=== PATIENT | female | born 1945 | race Caucasian/White ===

== ENCOUNTER 2018-07-26 15:09 | Outpatient (REF) | payer MEDICARE, OTHER, SELFPAY ==
[2018-07-26 20:56] LABS: TSH (W/Ref FT4) 0.37 uIU/mL (0.358-3.74)
== END 2018-07-26 15:29 ==
LOC: NCHCN 15:09
PROVIDERS: PCP Family Medicine; Visit Provider Family Medicine
DX: J06.9 Acute upper respiratory infection, unspecified (principal); E03.9 Hypothyroidism, unspecified
CPT/HCPCS: 84443

== ENCOUNTER 2018-09-05 00:34 | Outpatient (CLI) | payer MEDICARE, OTHER, SELFPAY ==
--- NOTE | 2018-09-05 13:05 | DI.CTLCSR_ITS ---
SYMPTOM/DIAGNOSIS: PERSONAL H/O TOBACCO ABUSE, Z87.[address] LUNG CANCER SCREENING PROTOCOL: CT examination of the chest was performed utilizing low dose lung cancer screening protocol. Images obtained through the upper abdomen show unremarkable appearance of visualized portions of liver, spleen, pancreas, adrenals and kidneys. No mediastinal mass or adenopathy is seen. No pleural effusion or pleural based mass. Tracheobronchial tree appears intact. There is moderate predominantly subpleural emphysema, particularly in the lung apices. A 5 mm.in diameter right basilar pleural based, well circumscribed nodule is noted. Minimal bi-apical pleural scarring noted. No other intrapulmonary nodule identified. CONCLUSION: No suspicious nodule identified. 5 mm. right basilar pleural based nodule posteriorly. Category 2, continue annual screening with LDCT in 12 months. Lung-RAD Category: Lung RADS Category 2- Benign Appearance/Behavior
== END 2018-09-05 00:54 ==
PROVIDERS: PCP Family Medicine; Visit Provider Family Medicine
DX: Z12.2 Encounter for screening for malignant neoplasm of respiratory organs (principal); Z87.891 Personal history of nicotine dependence; R91.1 Solitary pulmonary nodule
CPT/HCPCS: G0297

== ENCOUNTER 2019-07-11 10:22 | Outpatient (REF) | payer MEDICARE, OTHER, SELFPAY ==
[2019-07-11 22:17] LABS: Anion Gap 10.5 mmol/L (3-11); BUN 18 mg/dL (7-18); CO2 24.5 mmol/L (21.0-32.0); CREATININE 0.84 mg/dL (0.55-1.02); Calcium 8.7 mg/dL (8.5-10.1); Chloride 105 mmol/L (98-107); FREE T4 1.34 ng/dL (0.76-1.46); Glucose 94 mg/dL (70-100); Lipase 70 U/L (73-393); Potassium 4.4 mmol/L (3.5-5.1); Sodium 140 mmol/L (136-145); TSH 0.07 uIU/mL (0.36-3.74)
== END 2019-07-11 10:42 ==
LOC: NCHCN 10:22
PROVIDERS: PCP Family Medicine; Visit Provider Family Medicine
DX: E03.9 Hypothyroidism, unspecified (principal); M54.5 Low back pain; M25.559 Pain in unspecified hip; R03.0 Elevated blood-pressure reading, without diagnosis of hypertension; D49.4 Neoplasm of unspecified behavior of bladder
CPT/HCPCS: 80048; 83690; 84439; 84443

== ENCOUNTER 2019-07-24 01:17 | Outpatient (CLI) | payer MEDICARE, OTHER, SELFPAY ==
--- NOTE | 2019-07-24 10:45 | DI.RAD_ITS ---
EXAM: XR LUMBAR SPINE COMPLETE INDICATION: LBP M54.5. COMPARISON: No exams were available for comparison TECHNIQUE: 2D digital imaging was performed. FINDINGS: The bony structures are normally mineralized. Multi level disc space narrowing is prominent at T12-L 1, L1-L2 and L2-L3. Associated endplate sclerosis and hypertrophic spurring is identified. The pedi galindo, spinous and transverse processes appear intact. The sacrum and sacroiliac joints are unremarkab le. Note is made a mild dextro roto scoliotic deformity. IMPRESSION: Degenerative changes as described above.
== END 2019-07-24 01:37 ==
PROVIDERS: PCP Family Medicine; Visit Provider Family Medicine
DX: M54.5 Low back pain (principal); M51.36 Other intervertebral disc degeneration, lumbar region
CPT/HCPCS: 72110

== ENCOUNTER 2019-08-18 00:45 | Outpatient (CLI) | payer MEDICARE, OTHER, SELFPAY ==
--- NOTE | 2019-08-18 10:02 | DI.MRI_ITS ---
EXAM: MR LUMBAR SPINE WO CLINICAL HISTORY: LOW BACK PAIN, M54.5. TECHNIQUE: Multiplanar multisequence MRI was performed. COMPARISON: XR LUMBAR SPINE COMPLETE from 07/24/2019 FINDINGS: There is moderate to severe loss of disc height and concentric disc bulging at T12-L1 and L1-2. Th ere is no significant central canal stenosis or neural foraminal narrowing at these levels. At L2-3, there is mild broad-based disc bulging. The L3-4 disc is well maintained. There is disc desiccatio n. There are mild facet degenerative changes but no significant central canal stenosis. There is mi ld right neural foraminal narrowing. At L4-5, there is moderate concentric disc bulging. There are facet degenerative changes and ligamentous hypertrophy but no significant central canal stenosis. Th ere is mild left and moderate right neural foraminal narrowing. The L5-S1 disc shows normal height a nd signal. There is no central canal stenosis or neural foraminal narrowing. No disc herniation is seen at any level. The conus medullaris appears intact. The aorta is normal in diameter. IMPRESSION: Degenerative disc changes and facet degenerative changes greatest at L4-5, causing neural foraminal n arrowing.
[2019-08-18] MEDS: Gadoterate meglumine 20 ML VIAL 15 ML IVP (10:40)
[2019-08-18] MEDS: Normal Saline Flush 10 ML SYR IVP (10:40)
--- NOTE | 2019-08-18 10:50 | DI.MRI_ITS ---
EXAM: MR ABDOMEN WO/W CLINICAL HISTORY: PANCREATIC LESION, K86.9, F/U ABNL CT, R93.5. TECHNIQUE: Multiplanar multisequence MRI was performed. The exam is limited by patient body habitus , respiratory motion and equipment limitations. COMPARISON: ABDOMEN WITH + PELVIS WITH from 03/31/2019 ABDOMEN WITH + PELVIS WITH from 03/31/2019 FINDINGS: There is stable mild dilatation of the pancreatic duct and mild dilatation of the common bile duct. The area in question in the head of the pancreas on the previous CT appears purely cystic by MRI. I t appears unchanged in size. No new findings are seen. Multiple bilateral renal cysts are again not ed, right greater than left. IMPRESSION: Limited exam. The previously noted lesion in the pancreatic head appears cystic by MRI. It may repre sent a dilated duct.
== END 2019-08-18 01:05 ==
PROVIDERS: PCP Family Medicine; Visit Provider Family Medicine
DX: M54.5 Low back pain (principal); M51.36 Other intervertebral disc degeneration, lumbar region; M47.816 Spondylosis without myelopathy or radiculopathy, lumbar region; K86.89 Other specified diseases of pancreas; R93.5 Abnormal findings on diagnostic imaging of other abdominal regions, including retroperitoneum; N28.1 Cyst of kidney, acquired; K86.2 Cyst of pancreas
CPT/HCPCS: 74183; 72148

== ENCOUNTER 2019-11-06 00:53 | Outpatient (CLI) | payer MEDICARE, OTHER, SELFPAY ==
--- NOTE | 2019-11-06 11:14 | DI.MAMMO_ITS ---
EXAM: MG MAMMO SCREENING CLINICAL HISTORY: SCREENING, [facility] Z00.00 TECHNIQUE: Mammograms were interpreted according to the usual protocol including computer analysis w [employer] system, tomosynthesis and C-view imaging. COMPARISON: October 2016 FINDINGS: The breasts are heterogeneously dense with fairly symmetrical distribution of fibroglandular tissue. No dominant mass or clumped microcalcification is identified in either breast. Current examination is compared with previous examinations including October 2016 and there has been no gross interval ch abril in appearance in comparison with the previous studies. IMPRESSION: No specific evidence of malignancy at this time. Routine screening examinations are suggested at year ly intervals in this age group according to the ACS/ACR guidelines. Category 1, breast density catego ry C. BI-RADS Cat 1 - Negative Breast Density - Category C - Heterogeneously dense
== END 2019-11-06 01:13 ==
PROVIDERS: PCP Family Medicine; Visit Provider Family Medicine
DX: Z12.31 Encounter for screening mammogram for malignant neoplasm of breast (principal)
CPT/HCPCS: 77063; 77067

== ENCOUNTER 2020-09-11 11:17 | Outpatient (REF) | payer MEDICARE, OTHER, SELFPAY ==
[2020-09-11 21:26] LABS: TSH (W/Ref FT4) 0.04 uIU/mL (0.36-3.74)
[2020-09-11 21:55] LABS: FREE T4 1.55 ng/dL (0.76-1.46)
== END 2020-09-11 11:37 ==
LOC: NCHCN 11:17
PROVIDERS: PCP Family Medicine; Visit Provider Family Medicine
DX: E03.9 Hypothyroidism, unspecified (principal)
CPT/HCPCS: 84439; 84443

== ENCOUNTER 2020-11-21 23:40 | Outpatient (REF) | payer MEDICARE, OTHER, SELFPAY ==
[2020-11-21 19:10] LABS: FREE T4 1.46 ng/dL (0.76-1.46)
[2020-11-22 13:20] LABS: Calculated LDL 77 mg/dL (<100); Cholesterol 153 mg/dL (<200); HDL Cholesterol 37 mg/dL (40-60); Triglyceride 198 mg/dL (<150)
== END 2020-11-21 23:41 | disposition home or self-care (01) ==
LOC: NCHCN 23:40
PROVIDERS: PCP Family Medicine; Visit Provider Family Medicine
DX: E03.9 Hypothyroidism, unspecified (principal); R00.2 Palpitations; R06.09 Other forms of dyspnea
CPT/HCPCS: 80061; 84439

== ENCOUNTER 2020-12-05 18:52 | Outpatient (REF) | payer MEDICARE, OTHER, SELFPAY ==
[2020-12-07 13:54] LABS: COVID-19 RT-PCR UVMMC Result Negative (Negative)
== END 2020-12-05 18:53 | disposition home or self-care (01) ==
LOC: NCHCN 18:52
PROVIDERS: PCP Family Medicine; Visit Provider Nurse Practitioner Family
DX: R06.09 Other forms of dyspnea (principal)
CPT/HCPCS: U0003; U0005

== ENCOUNTER 2020-12-06 19:07 | Outpatient (CLI) | payer MEDICARE, OTHER, SELFPAY ==
--- NOTE | 2020-12-06 10:22 | DI.RAD_ITS ---
EXAM: XR CHEST 2V PA LATERAL CLINICAL HISTORY: COUGH, DYSPNEA, R05, R06.09 TECHNIQUE: 2D digital imaging was performed. COMPARISON: CT CT CHEST LUNG CANCER SCREEN from 09/05/2018 FINDINGS: MEDIASTINUM: Normal. HEART: Normal. PULMONARY VASCULATURE: Normal. LUNGS: Clear. PLEURAL SPACE: No pleural effusion or pneumothorax. BONE:Mild degenerative changes in the thoracic spine. OTHER FINDINGS:Normal. IMPRESSION: No acute pulmonary findings. DATA REPOSITORY: RADIATION DOSE DELIVERED:
== END 2020-12-06 19:08 ==
LOC: DI 12-12 19:07
PROVIDERS: PCP Family Medicine; Visit Provider Nurse Practitioner Family
DX: R05 Cough (principal); R06.09 Other forms of dyspnea
CPT/HCPCS: 71046

== ENCOUNTER 2021-09-18 11:23 | Outpatient (REF) | payer MEDICARE, OTHER, SELFPAY ==
[2021-09-19 12:10] LABS: COVID-19 RT-PCR UVMMC Result Negative (Negative)
== END 2021-09-18 11:24 | disposition home or self-care (01) ==
LOC: NCHCN 11:23
PROVIDERS: PCP Family Medicine; Visit Provider Nurse Practitioner Family
DX: Z20.822 Contact with and (suspected) exposure to COVID-19 (principal); R05.8 Other specified cough; R06.09 Other forms of dyspnea
CPT/HCPCS: U0003; U0005

== ENCOUNTER 2021-09-29 12:53 | Outpatient (CLI) | payer MEDICARE, OTHER, SELFPAY ==
--- NOTE | 2021-09-29 13:14 | DI.RAD_ITS ---
Exam(s) XR CHEST 2V PA LATERAL EXAM: XR CHEST 2V PA LATERAL CLINICAL HISTORY: ACUTE COUGH R05.1, MORRISSEY R06.09, R/O PNEUMONIA. TECHNIQUE: 2D digital imaging was performed. COMPARISON: CR CHEST 2 VIEWS PA,LAT from 05/12/2010 CR CHEST 2 VIEWS PA,LAT from 05/12/2010 CR XR CHEST 2V PA LATERAL from 12/06/2020 FINDINGS: Heart size is normal. The mediastinum is not widened. Mild increased lung markings. Possible very subtle infiltrate left lobe No pleural effusions. IMPRESSION: Slightly increased lung markings bilaterally. Possible very subtle left upper lobe. If clinically i ndicated follow-up CT scan can be. DATA REPOSITORY: RADIATION DOSE DELIVERED:
== END 2021-09-29 13:13 ==
PROVIDERS: PCP Family Medicine; Visit Provider Nurse Practitioner Family
DX: R05.1 Acute cough (principal); R06.09 Other forms of dyspnea; R91.8 Other nonspecific abnormal finding of lung field
CPT/HCPCS: 71046

== ENCOUNTER 2021-09-29 19:13 | Outpatient (REF) | payer MEDICARE, OTHER, SELFPAY ==
[2021-09-29 20:40] LABS: Abs Immature Grans 0.04 10^3/uL (0.0-0.06); Absolute Lymphocyte Count 2.23 10^3/uL (1.2-3.4); Absolute Monocyte Count 0.75 10^3/uL (0.1-0.8); Basophils % 0.7; Eosinophils % 4.2; HCT 40.7 % (36.0-46.0); HGB 13.2 g/dL (11.2-15.7); Immature Grans % 0.3; Lymphocytes % 18.2; MCH 30.1 pg (27.0-33.0); MCHC 32.4 % (32.0-36.0); MCV 92.9 fL (80-95); MPV 10.9 fL (8.0-11.0); Monocytes % 6.1; Neutrophils % 70.5; Nucleated RBC 0 %; Platelet Count 245 10^3/uL (130-400); RBC 4.38 10^6/uL (3.93-5.22); RDW-SD 41.4 fL; WBC 12.28 10^3/uL (4.4-10.8)
[2021-09-29 20:42] LABS: Absolute Basophil Count 0.09 10^3/uL (0.0-0.2); Absolute Eosinophil Count 0.52 10^3/uL (0.0-0.7); Absolute Neutrophil Count 8.66 10^3/uL (1.2-6.7)
[2021-09-29 20:44] LABS: Anion Gap 8.3 mmol/L (3-11); BUN 12 mg/dL (7-18); CO2 27.7 mmol/L (21.0-32.0); CREATININE 0.9 mg/dL (0.55-1.02); Calcium 8.9 mg/dL (8.5-10.1); Chloride 105 mmol/L (98-107); Glucose 137 mg/dL (74-106); Potassium 3.7 mmol/L (3.5-5.1); Sodium 141 mmol/L (136-145)
[2021-09-30 13:41] LABS: COVID-19 RT-PCR UVMMC Result Negative (Negative)
== END 2021-09-29 19:14 | disposition home or self-care (01) ==
LOC: NCHCN 19:13
PROVIDERS: PCP Family Medicine; Visit Provider Nurse Practitioner Family
DX: R05.1 Acute cough (principal); Z20.822 Contact with and (suspected) exposure to COVID-19; E03.9 Hypothyroidism, unspecified
CPT/HCPCS: 80048; U0003; U0005; 85025

== ENCOUNTER 2021-10-23 13:43 | Outpatient (REF) | payer MEDICARE, OTHER, SELFPAY ==
[2021-10-24 12:31] LABS: COVID-19 RT-PCR UVMMC Result Negative (Negative)
== END 2021-10-23 13:44 | disposition home or self-care (01) ==
LOC: LBN 13:43
PROVIDERS: PCP Family Medicine; Visit Provider Nurse Practitioner Family
DX: Z20.822 Contact with and (suspected) exposure to COVID-19 (principal); R05.1 Acute cough
CPT/HCPCS: U0003; U0005

== ENCOUNTER 2021-12-09 16:26 | Outpatient (REF) | payer MEDICARE, OTHER, SELFPAY ==
[2021-12-09 19:11] LABS: TSH (W/Ref FT4) 0.23 uIU/mL (0.36-3.74)
[2021-12-10 16:38] LABS: COVID-19 RT-PCR UVMMC Result Negative (Negative)
== END 2021-12-09 16:27 | disposition home or self-care (01) ==
LOC: NCHCN 16:26
PROVIDERS: PCP Family Medicine; Visit Provider Family Medicine
DX: E03.9 Hypothyroidism, unspecified (principal); R05.8 Other specified cough; J06.9 Acute upper respiratory infection, unspecified; Z20.822 Contact with and (suspected) exposure to COVID-19
CPT/HCPCS: U0003; U0005; 84439; 84443

== ENCOUNTER 2021-12-16 00:44 | Outpatient (CLI) | payer MEDICARE, OTHER, SELFPAY ==
--- NOTE | 2021-12-16 13:44 | DI.CTLCSR_ITS ---
Exam(s) CT CHEST LUNG CANCER SCREEN EXAM: CT CHEST LUNG CANCER SCREEN CLINICAL HISTORY: SCREENING FOR LUNG CA, FORMER SMOKER, Z87.891 TECHNIQUE: Imaging Protocol: Axial computed tomography images with coronal and sagittal reformatted images were created and reviewed COMPARISON: CT CT CHEST LUNG CANCER SCREEN from 09/05/2018 FINDINGS: Tracheobronchial tree: Patent where visualized. Pulmonary parenchyma: No consolidation or dominant measurable mass. Emphysematous changes are present in the lungs. Mild pulmonary fibrosis. There are findings suspicious for right infrahilar mass or enlarged lymph node measuring 1.4 transverse by 1.4 AP by 1.5 craniocaudad. Lung Nodules: There is a stable 5 mm pleural based nodule in the right lower lobe. Mediastinum and Caitlin: No dominant adenopathy or fluid collection. The esophagus is unremarkable. Thyroid gland: Unremarkable. Lymph nodes: Unremarkable. Pleura: No effusion or pneumothorax. Heart: The heart is not dilated. Coronary artery calcification is present. No pericardial effusion. Aorta: Thoracic aorta non-dilated.Atherosclerosis. Upper abdomen: Status post cholecystectomy. The liver has a mildly nodular contour which can be see n with hepatic cirrhosis. Soft Tissues: Unremarkable. Bones: Within normal limits. IMPRESSION: 1. Findings suspicious for right infrahilar mass or enlarged lymph node. A postcontrast CT scan of t he chest is recommended for further evaluation. 2. Stable 5 mm pleural based nodule in the right lower lobe. 3. Pulmonary emphysema. Lung RADS Cat 0 - Prior chest CT exam(s) being located for comparison or post-contrast CT scan of the chest recommendation. Lung-RADS 1.0 CATEGORIES: Category 0 - Prior chest CT exam(s) being located for comparison. Category 1 - Annual screening in 12 months. No nodules or definitely benign nodules. Category 2 - Annual screening in 12 months. Benign appearance. Nodules with low likelihood of becomin g active cancer. Category 3 - 6-month follow-up. Probably benign. Short-term follow-up suggested. Nodules with low lik elihood of becoming active cancer. Category 4A - 3-month follow-up and CT/PET if >8 mm in size. Suspicious finding. Findings which requi re additional testing. Category 4B - Findings which require additional testing and tissue sampling. Suspicious finding. Category 4X - Category 3 or 4 nodules with additional features or imaging findings that increases the suspicion of malignancy. Modifier S- Potentially clinically significant finding. (Non lung cancer) RADIATION DOSE DELIVERED: 76.6mGy.cm Total DLP !Error CTDIvol 76.6mGy.cm Total DLP 1.84mGy CTDIvol DATA REPOSITORY: All CT scans at this facility are submitted to the National Radiology Data Registry (NRDR) Dose Index Registry (DIR) with the [employer] (ACR). RADIATION OPTIMIZATION: All CT scans at this facility use at least one of these dose optimization te chniques: automated exposure control; mA and/or kV adjustment per patient size (includes targeted exa ms where dose is matched to clinical indication); or iterative reconstruction.
== END 2021-12-16 01:04 ==
PROVIDERS: PCP Family Medicine; Visit Provider Family Medicine
DX: Z12.2 Encounter for screening for malignant neoplasm of respiratory organs (principal); Z87.891 Personal history of nicotine dependence; R91.8 Other nonspecific abnormal finding of lung field; R91.1 Solitary pulmonary nodule; R59.0 Localized enlarged lymph nodes; J43.8 Other emphysema
CPT/HCPCS: 71271

== ENCOUNTER 2022-01-20 02:52 | Outpatient (CLI) | payer MEDICARE, OTHER, SELFPAY ==
[2022-01-20 12:53] LABS: CREATININE 0.8 mg/dL (0.55-1.02)
--- NOTE | 2022-01-20 13:00 | DI.CT_ITS ---
Exam(s) CT CHEST W EXAM: CT CHEST W CLINICAL HISTORY: INDETERMINATE PULMONARY NODULES, R91.8, F/U INTRAHILAR ABNORMALITIES TECHNIQUE: Imaging Protocol: Axial computed tomography images with coronal and sagittal reformatted images were created and reviewed CONTRAST MATERIAL: Intravenous: Omnipaque 350 Contrast volume:70 mL. COMPARISON: CT CT CHEST LUNG CANCER SCREEN from 09/05/[address] CHEST LUNG CANCER SCREEN from 12/16/2021 FINDINGS: Tracheobronchial tree: Patent where visualized. Pulmonary parenchyma: Dependent atelectasis. There are facet metastatic gist in the lungs. Mediastinum and Caitlin: There are enlarged mediastinal and hilar lymph nodes. There is a 1.2 x 0.9 cm pretracheal lymph node. There is a 1.2 x 1.2 cm right infrahilar lymph node. There is a 1.1 x 0.8 c m left hilar lymph node. No enlarged axillary or supraclavicular lymph nodes are seen. The esophagu s is unremarkable. Thyroid gland: Unremarkable. Pleura: No effusion or pneumothorax. Heart: The heart is not dilated. Coronary artery calcification is present. No pericardial effusion. Aorta: Thoracic aorta non-dilated. Atherosclerosis. Pulmonary arteries: The pulmonary arteries are not opacified well enough for evaluation of pulmonary emboli. Upper abdomen: Unremarkable. Lymph nodes: Please see above. Bones: Within normal limits for the patient's age. Soft tissues: Unremarkable. IMPRESSION: Mildly enlarged lymph nodes seen in the mediastinum and caitlin bilaterally. These may be reactive. No pulmonary mass is seen. A follow-up examination may be obtained in 3-6 months. Alternatively, a PE T scan may be also be considered. RADIATION DOSE DELIVERED: 557.41mGy.cm Total DLP DATA REPOSITORY: All CT scans at this facility are submitted to the National Radiology Data Registry (NRDR) Dose Index Registry (DIR) with the [employer] (ACR). RADIATION OPTIMIZATION: All CT scans at this facility use at least one of these dose optimization te chniques: automated exposure control; mA and/or kV adjustment per patient size (includes targeted exa ms where dose is matched to clinical indication); or iterative reconstruction.
[2022-01-20] MEDS: Omnipaque 350 MG/ML 100 ML BTL 70 ML IJ (13:20)
[2022-01-20] MEDS: Normal Saline Flush 10 ML SYR IVP (13:22)
== END 2022-01-20 03:12 ==
PROVIDERS: PCP Family Medicine; Visit Provider Family Medicine
DX: Z01.812 Encounter for preprocedural laboratory examination (principal); R91.8 Other nonspecific abnormal finding of lung field; J98.11 Atelectasis; R59.0 Localized enlarged lymph nodes
CPT/HCPCS: 71260; 82565; J3490

== ENCOUNTER → 2022-09-24 01:10 | Outpatient (CLI) | payer MEDICARE, OTHER, SELFPAY ==
--- NOTE | 2022-09-24 15:00 | DI.MAMMO_ITS ---
Exam(s) MAMMO SCREENING EXAM: MAMMO SCREENING CLINICAL HISTORY: SCREENING, Z12.31 TECHNIQUE: Bilateral full field digital CC and MLO mammographic images were obtained with 3D tomosyn thesis and utilizing computer aided detection (CAD). COMPARISON: Available for comparison. FINDINGS: Masses/Architectural Distortion: Slight increase in size and increased number of associated calcifica tions of an ovoid density in the central left breast on the MLO view. Microcalcifications: No suspicious pleomorphic-type are seen. Skin Thickening/Nipple Retraction: None. IMPRESSION: 1. Change in appearance of an ovoid nodule in the central left breast on the MLO view. 2. Evaluation with a spot compression view is requested. Limited left breast ultrasound is also dyan mmended for further evaluation. BI-RADS Category 0 - Assessment Incomplete: Need additional imaging evaluation Breast Density - Category C - Heterogeneously dense Breast density category C or D implies that the patient has dense breast tissue. Dense breast tissue is very common and is not abnormal but dense breast tissue can make it harder to find cancer on a ma mmogram. Also, dense breast tissue may increase their breast cancer risk. This information about the result of the mammogram report was provided to the patient to raise their awareness. Use this report when you speak with the patient about their risks for breast cancer, which includes their family hist ory. At that time, you may recommend for more screening tests (Ultrasound or MRI) as they might be us eful based on their risk. A negative radiographic report should not delay biopsy if a dominant or clinically suspicious mass is present. Up to ten percent of cancers are not identified on mammography. A negative report may reinforce clinical impression. Adenosis and dense breasts may obscure an underlying neoplasm. False positive reports average 6 to 10%. Patient will receive a letter notifying them of these results.
== END ==
PROVIDERS: PCP Family Medicine; Visit Provider Family Medicine
DX: Z12.31 Encounter for screening mammogram for malignant neoplasm of breast (principal); R92.8 Other abnormal and inconclusive findings on diagnostic imaging of breast
CPT/HCPCS: 77063; 77067

== ENCOUNTER → 2022-09-29 01:26 | Outpatient (CLI) | payer MEDICARE, OTHER, SELFPAY ==
--- NOTE | 2022-09-29 | DI.MAMMO_ITS ---
Exam(s) MG MAMMO SCREEN CALL BACK UNI US BREAST LT LIMITED EXAM: MG MAMMO SCREEN CALL BACK UNI and U/S breast LT limited CLINICAL HISTORY: F/U MAMMO R92.8,CHANGE IN APPEARANCE OF OVOID NODULE ON LT ML0. TECHNIQUE: Craniocaudal and mediolateral oblique Full Field Digital Mammography views of the left br east with Computer Aided Diagnosis followed by Tomosynthesis and left breast ultrasound. COMPARISON: Comparison is made with prior examinations. FINDINGS: Mammography/Tomosynthesis: Masses/Architectural Distortion: The additional view shows a partially obscured but lobulated density in the central outer left breast. It is less concerning on the current examination and appears irma lar to prior examinations. Microcalcifictions: No suspicious pleomorphic-type are seen. Skin Thickening/Nipple Retraction: None. Limited left breast US: Echotexture: Normal appearance of the glandular tissue. Shadowing: No suspicious foci. Cyst: None. Solid lesions: There is a bilobed well-circumscribed hypoechoic nodule at the 2 o'clock position of t he left breast 4 cm from the nipple. This would appear to correspond to the mammographic abnormality . The nodule shows no posterior acoustic enhancement or shadowing. Internal echogenic foci are seen consistent with the calcifications seen on the mammogram. No definite suspicious features are seen at this time. Ductal dilation: None. IMPRESSION: 1. No definite evidence of malignancy is noted. 2. A six-month follow-up left mammogram and limited left breast ultrasound are requested for re-evalu ation. 3. The findings were discussed with the patient on the date of the examination. BI-RADS Category 3 - 6 month - Probably Benign Finding: Recommend follow-up imaging in 6 months Breast Density - Category C - Heterogeneously dense Breast density Category C or D implies that the patient has dense breast tissue. Dense breast tissue can make it harder to find cancer on a mammogram. Dense breast tissue is also associated with an incr eased risk of breast cancer. This information about the result of the mammogram report was provided to the patient to raise their awareness. Use this report when you speak with the patient about their risks for breast cancer, which includes their family history. At that time, you may recommend additional screening tests (Ultrasoun d or MRI) as these tests may add significant information. A negative radiographic report should not delay biopsy if a dominant or clinically suspicious mass is present. Up to ten percent of cancers are not identified on mammography. A negative report may reinforce clinical impression. Adenosis and dense breasts may obscure an underlying neoplasm. False positive reports average 6 to 10%. Patient will receive a letter notifying them of these results.
== END ==
PROVIDERS: PCP Family Medicine; Visit Provider Family Medicine
DX: R92.8 Other abnormal and inconclusive findings on diagnostic imaging of breast (principal); Z12.31 Encounter for screening mammogram for malignant neoplasm of breast
CPT/HCPCS: 76642; 77063; 77067

== ENCOUNTER 2023-01-29 12:10 | Outpatient (REF) | payer MEDICARE, SELFPAY ==
[2023-01-29 15:45] LABS: Hemoglobin A1C 5.6 % (<5.7)
[2023-01-29 15:57] LABS: TSH (W/Ref FT4) 0.04 uIU/mL (0.36-3.74)
[2023-01-29 16:42] LABS: FREE T4 1.51 ng/dL (0.76-1.46)
== END 2023-01-29 12:11 | disposition home or self-care (01) ==
LOC: NCHCN 12:10
PROVIDERS: PCP Family Medicine; Visit Provider Family Medicine
DX: E03.9 Hypothyroidism, unspecified (principal); D49.4 Neoplasm of unspecified behavior of bladder; R82.998 Other abnormal findings in urine; R73.09 Other abnormal glucose
CPT/HCPCS: 83036; 84439; 84443; 87086

== ENCOUNTER 2023-03-26 00:03 | Outpatient (CLI) | payer MEDICARE, SELFPAY ==
--- NOTE | 2023-03-26 | DI.MAMMO_ITS ---
Exam(s) MAMMO DIAGNOSTIC UNI EXAM: MAMMO DIAGNOSTIC UNI CLINICAL HISTORY: DIAGNOSTIC, 6 MO F/U, MAMMO, R92.8. TECHNIQUE: Craniocaudal and mediolateral oblique Full Field Digital Mammography views of the left br east with Computer Aided Diagnosis followed by Tomosynthesis. COMPARISON: Comparison is made with prior examinations. FINDINGS: Mammography/Tomosynthesis: Masses/Architectural Distortion: There is a stable nodule in the outer left breast. No area of archi tectural distortion is seen. Microcalcifictions: No suspicious pleomorphic-type are seen. Skin Thickening/Nipple Retraction: None. IMPRESSION: 1. Ultrasound could not be performed at this time. The patient is scheduled further six-month left b reast ultrasound within 2 weeks. 2. Stable nodule in the outer left breast. 3. This 6 month examination will be completed with the ultrasound which is to be performed. 4. The patient is aware that the examination is incomplete. BI-RADS Category 0 - Assessment Incomplete: Need additional imaging evaluation Breast Density - Category C - Heterogeneously dense Breast density Category C or D implies that the patient has dense breast tissue. Dense breast tissue can make it harder to find cancer on a mammogram. Dense breast tissue is also associated with an incr eased risk of breast cancer. This information about the result of the mammogram report was provided to the patient to raise their awareness. Use this report when you speak with the patient about their risks for breast cancer, which includes their family history. At that time, you may recommend additional screening tests (Ultrasoun d or MRI) as these tests may add significant information. A negative radiographic report should not delay biopsy if a dominant or clinically suspicious mass is present. Up to ten percent of cancers are not identified on mammography. A negative report may reinforce clinical impression. Adenosis and dense breasts may obscure an underlying neoplasm. False positive reports average 6 to 10%. Patient will receive a letter notifying them of these results.
--- NOTE | 2023-03-26 10:30 | DI.DEXA_ITS ---
Exam(s) XR DEXA BONE DENSITY W/WO MATT EXAM: XR DEXA BONE DENSITY W/WO MATT CLINICAL HISTORY: POSTMENOPAUSAL, Z78.0, PREVENTATIVE HEALTH CARE, Z00.00 TECHNIQUE: COMPARISON: No exams were available for comparison FINDINGS: Lateral Spine Image: Unremarkable. No compression deformities identified. Left hip: Total T-Score: -1.5 Total Z-Score: 0.3 T- and Z-scores: Findings are consistent with osteopenia. Lumbar Spine: Total T-Score: -0.5 Total Z-Score: 2.0 T- and Z-scores: Within normal limits. IMPRESSION: No evidence of osteoporosis.
== END 2023-03-26 00:23 ==
PROVIDERS: PCP Family Medicine; Visit Provider Family Medicine
DX: Z78.0 Asymptomatic menopausal state (principal); Z12.31 Encounter for screening mammogram for malignant neoplasm of breast; R92.8 Other abnormal and inconclusive findings on diagnostic imaging of breast
CPT/HCPCS: 77061; 77065; 77080; G0279

== ENCOUNTER 2023-03-31 02:43 | Outpatient (CLI) | payer MEDICARE, SELFPAY ==
--- NOTE | 2023-03-31 | DI.US_ITS ---
Exam(s) US BREAST LT COMPLETE EXAM: US BREAST LT COMPLETE-LEFT CLINICAL HISTORY: LT BREAST NODULE, 6 MO F/U. TECHNIQUE: Complete ultrasound of the breast was performed including all 4 quadrants, the retroareo lar region, and the ipsilateral axilla. COMPARISON: Prior mammograms were reviewed. Most recent mammogram was 03/26/2023. Prior ultrasound of 09/29/2022 also reviewed. FINDINGS: COMPLETE LEFT BREAST ULTRASOUND: The 12 o'clock position there is a benign 4 millimeter microcyst. At the 2 o'clock position there is again noted the previously described bilobed cystic structure whic h exhibits minimal if any significant change from the ultrasound examination 09/29/2022 and again exh ibits increased through transmission. This is wider than taller and has benign appearance. Echogeni c foci again noted associated with this, similar to previous. There are no additional ultrasound findings in all 4 quadrants. Scanning of the left axilla is negative for adenopathy. IMPRESSION: Unchanged benign appearance of the left breast 2 o'clock position bilobed cystic finding described ab ove. Incidental note of an additional small benign 4 mm at the 12 o'clock position of the same left breast Appropriate follow-up is to keep this patient on her yearly mammogram schedule, this implying that he r next bilateral mammogram would be in September 2023. I recommend repeat ultrasound examination at t hat time.. Findings and recommendations were discussed by myself with the patient today. BI-RADS Category 2 - Benign Findings Breast Density - Category C - Heterogeneously dense Breast density Category C or D implies that the patient has dense breast tissue. Dense breast tissue can make it harder to find cancer on a mammogram. Dense breast tissue is also associated with an incr eased risk of breast cancer. This information about the result of the mammogram report was provided to the patient to raise their awareness. Use this report when you speak with the patient about their risks for breast cancer, which includes their family history. At that time, you may recommend additional screening tests (Ultrasoun d or MRI) as these tests may add significant information. A negative radiographic report should not delay biopsy if a dominant or clinically suspicious mass is present. Up to ten percent of cancers are not identified on mammography. A negative report may reinforce clinical impression. Adenosis and dense breasts may obscure an underlying neoplasm. False positive reports average 6 to 10%. Patient will receive a letter notifying them of these results.
== END 2023-03-31 03:03 ==
LOC: DI 02:44
PROVIDERS: PCP Family Medicine; Visit Provider Family Medicine
DX: R92.8 Other abnormal and inconclusive findings on diagnostic imaging of breast (principal)
CPT/HCPCS: 76642

== ENCOUNTER 2023-08-10 16:17 | Outpatient (REF) | payer MEDICARE, SELFPAY | END 2023-08-10 16:18 | disposition home or self-care (01) | LOC: NCHCN 16:17 | PROVIDERS: PCP Family Medicine; Visit Provider Family Medicine | DX: L72.3 Sebaceous cyst (principal) | CPT/HCPCS: 87070; 87205 ==

== ENCOUNTER → 2023-09-28 01:43 | Outpatient (CLI) | payer MEDICARE, SELFPAY ==
--- NOTE | 2023-09-28 | DI.MAMMO_ITS ---
Exam(s) MAMMO SCREENING EXAM: MAMMO SCREENING CLINICAL HISTORY: Screening Z12.39, Preventative health care Z00.00 TECHNIQUE: Bilateral full field digital CC and MLO mammographic images were obtained with 3D tomosyn thesis and utilizing computer aided detection (CAD). COMPARISON: Available for comparison. FINDINGS: Masses/Architectural Distortion: There are stable nodules in the breasts. No suspicious or new nodul es or areas of architectural distortion are seen. Microcalcifications: No suspicious pleomorphic-type are seen. Skin Thickening/Nipple Retraction: None. IMPRESSION: 1. No significant interval change with no specific features of malignancy noted. 2. Unless there is more urgent need, screening mammography is recommended, as per [place] [employer] guidelines. BI-RADS Category 2 - Benign Findings Breast Density - Category B - Scattered areas of fibroglandular density Breast density category C or D implies that the patient has dense breast tissue. Dense breast tissue is very common and is not abnormal but dense breast tissue can make it harder to find cancer on a ma mmogram. Also, dense breast tissue may increase their breast cancer risk. This information about the result of the mammogram report was provided to the patient to raise their awareness. Use this report when you speak with the patient about their risks for breast cancer, which includes their family hist ory. At that time, you may recommend for more screening tests (Ultrasound or MRI) as they might be us eful based on their risk. A negative radiographic report should not delay biopsy if a dominant or clinically suspicious mass is present. Up to ten percent of cancers are not identified on mammography. A negative report may reinforce clinical impression. Adenosis and dense breasts may obscure an underlying neoplasm. False positive reports average 6 to 10%. Patient will receive a letter notifying them of these results.
== END ==
PROVIDERS: PCP Family Medicine; Visit Provider Family Medicine
DX: Z12.31 Encounter for screening mammogram for malignant neoplasm of breast (principal)
CPT/HCPCS: 77063; 77067

== ENCOUNTER 2024-02-01 15:07 | Outpatient (REF) | payer MEDICARE, SELFPAY ==
[2024-02-01 16:28] LABS: TSH (W/Ref FT4) 0.06 uIU/mL (0.36-3.74)
[2024-02-01 17:43] LABS: FREE T4 1.35 ng/dL (0.76-1.46)
== END 2024-02-01 15:08 | disposition home or self-care (01) ==
LOC: NCHCN 15:07
PROVIDERS: PCP Family Medicine; Visit Provider Family Medicine
DX: E03.9 Hypothyroidism, unspecified (principal)
CPT/HCPCS: 84439; 84443

== ENCOUNTER → 2024-02-21 03:10 | Outpatient (CLI) | payer MEDICARE, SELFPAY ==
--- NOTE | 2024-02-21 | DI.CTLCSR_ITS ---
Exam(s) CT CHEST LUNG CANCER SCREEN EXAM: CT CHEST LUNG CANCER SCREEN CLINICAL HISTORY: Z87.891 Personal HX nicotine dependence TECHNIQUE: Imaging Protocol: Axial computed tomography images with coronal and sagittal reformatted images were created and reviewed. Low dose screening protocol. COMPARISON: CT CT CHEST W from 01/20/2022 FINDINGS: Tracheobronchial tree: No bronchiectasis or mucus plugging. Mediastinum and Caitlin: No dominant adenopathy or fluid collection. Pulmonary parenchyma: No consolidation or dominant measurable mass. [id number] emphysematous ch anges. Interstitial changes greater peripherally. Lung Nodules: 5 millimeter nodule periphery of the lateral right lower lobe Pleura: No effusion. No pneumothorax. Heart: The heart is not dilated. Mild coronary artery calcifications are seen. Aorta: Thoracic aorta non-dilated. Mild atherosclerotic changes. Upper abdomen: Unremarkable. Bones: Unremarkable for age. Degenerative changes in the spine. Soft Tissues: Unremarkable. IMPRESSION: 5 millimeter nodule lateral right lower lobe, new compared to 2021. Six-month follow-up LDCT recomme nded. Lung RADS Cat 3 - Probably Benign: Probably benign finding(s) - short term follow-up suggested; inclu de nodules with a low likelihood of becoming a clinically active cancer. Lung-RADS 1.0 CATEGORIES: Category 0 - Prior chest CT exam(s) being located for comparison. Category 1 - Annual screening in 12 months. No nodules or definitely benign nodules. Category 2 - Annual screening in 12 months. Benign appearance. Nodules with low likelihood of becomin g active cancer. Category 3 - 6-month follow-up. Probably benign. Short-term follow-up suggested. Nodules with low lik elihood of becoming active cancer. Category 4A - 3-month follow-up and CT/PET if >8 mm in size. Suspicious finding. Findings which requi re additional testing. Category 4B - Findings which require additional testing and tissue sampling. Category 4X - Category 3 or 4 nodules with additional features or imaging findings that increases the suspicion of malignancy. Modifier S- Potentially clinically significant findings (non lung cancer) RADIATION DOSE DELIVERED: 76.56mGy.cm Total DLP DATA REPOSITORY: All CT scans at this facility are submitted to the National Radiology Data Registry (NRDR) Dose Index Registry (DIR) with the [employer] ([employer]). RADIATION OPTIMIZATION: All CT scans at this facility use at least one of these dose optimization te chniques: automated exposure control; mA and/or kV adjustment per patient size (includes targeted exa ms where dose is matched to clinical indication); or iterative reconstruction.
== END ==
PROVIDERS: PCP Family Medicine; Visit Provider Family Medicine
DX: Z12.2 Encounter for screening for malignant neoplasm of respiratory organs (principal); R91.1 Solitary pulmonary nodule; Z87.891 Personal history of nicotine dependence
CPT/HCPCS: 71271

== ENCOUNTER 2024-02-21 14:28 | Outpatient (REF) | payer MEDICARE, SELFPAY ==
[2024-02-21 15:34] LABS: Bilirubin Negative (Negative); Blood Small (Negative); Clarity Sl Cloudy (Clear); Glucose Negative (Negative); Ketones Trace mg/dL (Negative); Leukocyte Esterase Moderate (Negative); Nitrite Positive (Negative); Urobilinogen 0.2 mg/dL (Up to 0.2); pH 5.5 (5-8)
[2024-02-21 15:43] LABS: Bacteria Many HPF (Negative); C & S Indicated? Yes; Casts Negative LPF (Negative); Crystals Few Calcium Oxalate HPF (Negative); Epithelial Cells Few HPF (Negative); Mucus Negative (Negative); WBC 20-50 HPF (0-5)
== END 2024-02-21 14:29 | disposition home or self-care (01) ==
LOC: NCHCN 14:28
PROVIDERS: PCP Family Medicine; Visit Provider Family Medicine
DX: Z85.51 Personal history of malignant neoplasm of bladder (principal)
CPT/HCPCS: 87077; 81003; 81015; 87086; 87186

== ENCOUNTER 2025-04-13 22:53 | Outpatient (REF) | payer MEDICARE, SELFPAY ==
[2025-04-13 19:41] LABS: Abs Immature Grans 0.06 10^3/uL (0.0-0.06); Absolute Eosinophil Count 0.12 10^3/uL (0.0-0.7); Basophils % 0.5 %; Eosinophils % 0.7 %; HCT 36.2 % (36.0-46.0); HGB 11.9 g/dL (11.2-15.7); Immature Grans % 0.3 %; Lymphocytes % 9.5 %; MCH 29.9 pg (27.0-33.0); MCHC 32.9 % (32.0-36.0); MCV 91 fL (80-95); MPV 9.6 fL (8.0-11.0); Monocytes % 5.6 %; Neutrophils % 83.4 %; Platelet Count 384 10^3/uL (130-400); RBC 3.98 10^6/uL (3.93-5.22); RDW 12.3 % (11.7-14.6); RDW-SD 41.1 fL; WBC 17.75 10^3/uL (4.4-10.8)
[2025-04-13 19:42] LABS: Absolute Basophil Count 0.09 10^3/uL (0.0-0.2); Absolute Lymphocyte Count 1.69 10^3/uL (1.2-3.4); Absolute Monocyte Count 0.99 10^3/uL (0.1-0.8)
[2025-04-13 20:07] LABS: Anion Gap 10.4 mmol/L (3-11); BUN 11 mg/dL (7-18); CO2 27.6 mmol/L (21.0-32.0); CREATININE 0.7 mg/dL (0.55-1.02); Calcium 8.6 mg/dL (8.5-10.1); Chloride 100 mmol/L (98-107); Estimated GFR 88.47 (mL/min/1.73m2); Glucose 89 mg/dL (74-106); NT-proBNP 231 pg/mL (<300); Potassium 3.6 mmol/L (3.5-5.1); Sodium 138 mmol/L (136-145); TSH 3.95 uIU/mL (0.36-3.74)
== END 2025-04-13 22:54 | disposition home or self-care (01) ==
LOC: NCHCN 22:53
PROVIDERS: PCP Family Medicine; Visit Provider Family Medicine
DX: E03.9 Hypothyroidism, unspecified (principal); J18.9 Pneumonia, unspecified organism
CPT/HCPCS: 80048; 83880; 84439; 84443; 85025